=== PATIENT | male | born 1990 | race Caucasian/White ===

== ENCOUNTER 2018-03-28 09:06 | Emergency (ER) | payer SELFPAY ==
[~2018-03-28] VITALS: Ht 175.3 cm; Wt 83.0 kg
[2018-03-28 09:08] VITALS: BP 137/73; PULSE 87; RESP 18; TEMP 98; O2SAT 98
[2018-03-28] MEDS ORDERED: AUGM875T3 PO ×2 (09:41→09:42)
[2018-03-28] MEDS ORDERED: FLUT1SPR5 EACH NARE ×2 (09:41→09:42)
--- NOTE | 2018-03-28 09:41 | PD ---
HPI Chief Complaint: Cold / Flu Symptoms Time Seen by Provider: 09:24 Travel History International Travel<30 days: No Contact w/Intl Traveler<30days: No Traveled to known affect area: No History of Present Illness HPI 27-year-old male with no significant medical history presents to the emergency department for evaluation of sinus pressure, congestion, and pain worsening over the last 4 days. Patient denies fever. States he has been getting intermittent chills. States that the pressure is throbbing and constant in his head. He does have an intermittent cough. It is nonproductive. He does smoke tobacco cigarettes. He denies any nausea, vomiting, diarrhea. He denies any significant pain other than a sinus pressure. He has no other symptoms to report. PFSH Past Medical History ADHD: Yes Bipolar Disorder: Yes Diminished Hearing: No Psychiatric: Yes (hx SUICIDAL IDEATION) Reproductive: No Immunizations Current: Yes Thyroid Disease: No Ulcer: No Past Surgical History Appendectomy: Yes Other Surgery: No Social History Alcohol Use: No Tobacco Use: No Substance Use: No Allergies-Medications (Allergen,Severity, Reaction): Coded Allergies: calamine (Unverified Allergy, Severe, Hives, 03/28/18) red dye (Unverified Allergy, Severe, RED DYE # 22, 03/28/18) Reported Meds & Prescriptions Reported Meds & Active Scripts Active Flonase Nasal [place] (Fluticasone Nasal [place]) 50 Mcg/Act [place] 100 Mcg EACH NARE BID Augmentin (Amoxicillin-Clavulanate) 875-125 Mg Tab 1 Tab PO BID Review of Systems Except as stated in HPI: all other systems reviewed are Neg Physical Exam Narrative GENERAL: Well-nourished, well-developed male patient, in no acute distress SKIN: Focused skin assessment warm/dry. HEAD: Normocephalic. Maxillary sinuses are tender to palpation. EYES: No scleral icterus. No injection or drainage. ENT: Mucosa pink and moist. Pharynx with erythema, no exudate. No uvular edema. No uvular, palatal, or tonsillar deviation. Airway patent. Nasal turbinates appear inflamed without nasal blood, purulent drainage or septal hematoma. NECK: Supple, trachea midline. No JVD or lymphadenopathy. CARDIOVASCULAR: Regular rate and rhythm without murmurs, gallops, or rubs. RESPIRATORY: Breath sounds equal bilaterally. No accessory muscle use. GASTROINTESTINAL: Abdomen soft, non-tender, nondistended. MUSCULOSKELETAL: No cyanosis, or edema. BACK: Nontender without obvious deformity. No CVA tenderness. Data Data Last Documented VS Vital Signs Date Time Temp Pulse Resp B/P (MAP) Pulse Ox O2 Delivery O2 Flow Rate FiO2 03/28/18 09:08 98.0 87 18 137/73 (94) 98 Orders Orders Ed Discharge Order (03/28/18 09:41) MDM Medical Decision Making Medical Screen Exam Complete: Yes Emergency Medical Condition: Yes Medical Record Reviewed: Yes Differential Diagnosis Sinusitis viral versus bacterial versus rhinosinusitis versus allergies versus common cold Narrative Course 27-year-old male presents emergency department for evaluation of sinus pressure and congestion. Patient does have maxillary sinus tenderness to palpation and erythematous pharynx. Patient will be treated for a bacterial sinusitis. I have counseled him on care and encouraged follow-up with primary care provider. He agrees to return immediately with acute worsening symptoms. Diagnosis Primary Impression: Sinusitis Qualified Codes: J01.00 - Acute maxillary sinusitis, unspecified Referrals: Primary Care Physician Patient Instructions: General Instructions, Sinusitis (ED) Departure Forms: Tests/Procedures, Work Release Enter return to work date: Mar 30, 2018 Additional Instructions: Humidified air may help to alleviate symptoms Follow-up with a primary care provider Tylenol or ibuprofen as directed on the package as needed for fever and/or pain [id number] antihistamine such as Benadryl or Zyrtec may help alleviate your symptoms. Take them as directed on the package Return immediately with acute worsening symptoms Med/Other Pt SpecificInfo: Prescription(s) given Scripts Fluticasone Nasal [place] (Flonase Nasal [place]) 50 Mcg/Act [place] 100 MCG EACH NARE BID for Allergies, #1 BOTTLE 0 Refills Prov: Yovana Mcneill 03/28/18 Amoxicillin-Clavulanate (Augmentin) 875-125 Mg Tab 1 TAB PO BID for Infection, #20 TAB 0 Refills Prov: Yovana Mcneill 03/28/18 Disposition: 01 DISCHARGE HOME Condition: Stable Yovana Mcneill Mar 28, 2018 09:41
== END 2018-03-28 09:48 | disposition home or self-care (01) ==
LOC: PHEFT 09:06
DX: J01.00 Acute maxillary sinusitis, unspecified (principal); R68.83 Chills (without fever); R05 Cough; Z72.0 Tobacco use; Z86.59 Personal history of other mental and behavioral disorders
CPT/HCPCS: 99283